=== PATIENT | female | born 1965 | race Caucasian/White ===

== ENCOUNTER 2019-02-25 05:55 | Observation (INO) | payer OTHER ==
[2019-02-25 07:27] LABS: ABSOLUTE BASOPHILS # (AUTO) 0.1 10^3/uL (0.0-0.2); ABSOLUTE EOSINOPHILS # (AUTO) 0.2 10^3/uL (0.0-0.6); ABSOLUTE LYMPHOCYTES (AUTO) 1.5 10^3/uL (0.5-4.7); ABSOLUTE MONOCYTES (AUTO) 0.6 10^3/uL (0.1-1.4); ABSOLUTE NEUT (AUTO) 8.7 10^3/uL (1.7-8.2); BASOPHILS % (AUTO) 0.7 % (0-2); EOSINOPHILS % (AUTO) 1.9 % (0-6); HEMATOCRIT 44.4 % (36.0-47.0); HEMOGLOBIN 14.8 g/dL (12.0-15.5); LYMPHOCYTES % (AUTO) 13.4 % (13-45); MEAN CORPUSCULAR HEMOGLOBIN 26.4 pg (27.0-33.4); MEAN CORPUSCULAR HGB CONC 33.3 g/dL (32.0-36.0); MEAN CORPUSCULAR VOLUME 79 fl (80-97); MONOCYTES % (AUTO) 5.8 % (3-13); PLATELET COUNT 382 10^3/uL (150-450); RED CELL DISTRIBUTION WIDTH 13.6 % (11.5-14.0); SEGMENTED NEUTROPHILS % (AUTO) 78.2 % (42-78); TOTAL CELLS COUNTED % (AUTO) 100 %; WHITE BLOOD COUNT 11.1 10^3/uL (4.0-10.5)
[2019-02-25 07:31] LABS: APPEARANCE,URINE SLIGHTLY-CLOUDY; BILIRUBIN,URINE NEGATIVE (NEGATIVE); GLUCOSE, URINE NEGATIVE (NEGATIVE); KETONES,URINE NEGATIVE (NEGATIVE); LEUKOCYTE ESTERASE,URINE MODERATE (NEGATIVE); NITRITE,URINE NEGATIVE (NEGATIVE); PROTEIN,URINE 30 mg/dL (NEGATIVE); URINE SPECIFIC GRAVITY 1.027; UROBILINOGEN,URINE NEGATIVE mg/dL (<2.0)
[2019-02-25 07:36] LABS: COLOR,URINE YELLOW
[2019-02-25 07:44] LABS: ALANINE AMINOTRANSFERASE 38 U/L (9-52); ALBUMIN 4.9 g/dL (3.5-5.0); ALKALINE PHOSPHATASE 110 U/L (38-126); ANION GAP 13 (5-19); ASPARTATE AMINO TRANSFERASE 31 U/L (14-36); BILIRUBIN,DIRECT 0.2 mg/dL (0.0-0.4); BILIRUBIN,TOTAL 0.5 mg/dL (0.2-1.3); BLOOD UREA NITROGEN 11 mg/dL (7-20); CALCIUM 10.3 mg/dL (8.4-10.2); CARBON DIOXIDE 30 mmol/L (22-30); CHLORIDE 100 mmol/L (98-107); GLUCOSE 124 mg/dL (75-110); LIPASE 81.9 U/L (23-300); POTASSIUM 4.1 mmol/L (3.6-5.0); SODIUM 142.8 mmol/L (137-145); TOTAL PROTEIN 8.1 g/dL (6.3-8.2)
--- NOTE | 2019-02-25 07:58 | ER Document Report ---
ED General - General Chief Complaint: Abdominal Pain >50 Stated Complaint: ABDOMINAL PAIN Time Seen by Provider: 02/25/19 07:36 Primary Care Provider: OSMAR DUKES MD [ACTIVE STAFF] - Follow up as needed Notes: [id number] to the emergency department chief complaint of abdominal pain. Patient states that pain began yesterday. Has gotten worse. Located diffusely in the abdomen. Mostly in the right upper quadrant and right lower quadrant area. Some nausea. No diarrhea. Patient states that she has had a Meckel's diverticulum when she was about 12 years old and subsequent bowel obstruction. Other than that she has had no other surgeries. TRAVEL OUTSIDE OF THE [place] IN LAST 30 DAYS: No - HPI Onset: Yesterday Onset/Duration: Gradual, Constant Quality of pain: Achy Severity: Moderate Pain Level: 3 Associated symptoms: Nausea - Related Data Allergies/Adverse Reactions: pseudoephedrine HCl [From Actifed] Allergy (Mild, Verified 05/11/11 09:40) unknown triprolidine HCl [From Actifed] Allergy (Mild, Verified 05/11/11 09:40) unknown Past Medical History - General Information source: Patient - Social History Smoking Status: Never Smoker Frequency of alcohol use: None Drug Abuse: None Lives with: Spouse/Significant other Family History: Reviewed & Not Pertinent - Medical History Medical History: Negative - Past Medical History Cardiac Medical History: Denies: Hx Heart Attack, Hx Hypertension Pulmonary Medical History: Denies: Hx Asthma Neurological Medical History: Denies: Hx Cerebrovascular Accident, Hx Seizures GI Medical History: Denies: Hx Hepatitis, Hx Hiatal Hernia, Hx Ulcer Musculoskeletal Medical History: Infectious Medical History: Denies: Hx Hepatitis Past Surgical History: Denies: Hx Hysterectomy, Hx Mastectomy, Hx Open Heart Surgery, Hx Pacemaker Review of Systems - Review of Systems Notes: Constitutional: denies: Chills, Diaphoresis, Fever, Malaise, Weakness EENT: denies: Eye discharge, Blurred vision, Tearing, Double vision, Nose congestion, Nose discharge, Throat swelling, Mouth pain Cardiovascular: denies: Palpitations, Heart racing, Orthopnea, Dyspnea, Chest pain Respiratory: denies: Cough, Hurts to breathe, Wheezing, Shortness of breath Gastrointestinal: Complaining of abdominal pain and nausea. No diarrhea. Genitourinary: denies: Burning, Dysuria, Discharge, Frequency, Flank pain, Hematuria Musculoskeletal: denies: Joint pain, Joint swelling, Muscle pain, Muscle stiffness, back pain Hematologic/Lymphatic: denies: Anemia, Easy bleeding, Easy bruising, Blood clots Neurological/Psychological: denies: Confusion, Dementia, Depression, Loss of consciousness Skin: No lesions, no masses, no skin breakdown, no abscesses Physical Exam - Vital signs Vitals: Temp Pulse Resp BP Pulse Ox 98.0 F 86 16 192/86 H 99 02/25/19 05:59 02/25/19 05:59 02/25/19 05:59 02/25/19 05:59 02/25/19 05:59 Interpretation: Normal - General General appearance: Appears well, Alert - HEENT Head: Normocephalic, Atraumatic Eyes: Normal Pupils: PERRL - Respiratory Respiratory status: No respiratory distress Chest status: Nontender Breath sounds: Normal Chest palpation: Normal - Cardiovascular Rhythm: Regular Heart sounds: Normal auscultation Murmur: No - Abdominal Inspection: Normal Distension: No distension Bowel sounds: Hypoactive Tenderness: Tender - Moderate tenderness diffusely. No: Guarding, Rebound Organomegaly: No organomegaly - Back Back: Normal, Nontender - Extremities General upper extremity: Normal inspection, Nontender, Normal color, Normal ROM, Normal temperature General lower extremity: Normal inspection, Nontender, Normal color, Normal ROM, Normal temperature, Normal weight bearing. No: Bridger's sign - Neurological Neuro grossly intact: Yes Cognition: Normal Orientation: AAOx4 Dumas Coma Scale Eye Opening: Spontaneous Anne Coma Scale Verbal: Oriented Dum[place] Coma Scale Motor: Obeys Commands Dumas Coma Scale Total: 15 Speech: Normal Motor strength normal: LUE, RUE, LLE, RLE Sensory: Normal - Psychological Associated symptoms: Normal affect, Normal mood - Skin Skin Temperature: Warm Skin Moisture: Dry Skin Color: Normal Course - Re-evaluation Re-evalutation: 02/25/19 12:16 Laboratory 02/25/19 02/25/19 02/25/19 07:06 07:06 07:06 WBC 11.1 H RBC 5.60 H Hgb 14.8 Hct 44.4 MCV 79 L MCH 26.4 L MCHC 33.3 RDW 13.6 Plt Count 382 Seg Neutrophils % 78.2 H Lymphocytes % 13.4 Monocytes % 5.8 Eosinophils % 1.9 Basophils % 0.7 Absolute Neutrophils 8.7 H Absolute Lymphocytes 1.5 Absolute Monocytes 0.6 Absolute Eosinophils 0.2 Absolute Basophils 0.1 Sodium 142.8 Potassium 4.1 Chloride 100 Carbon Dioxide 30 Anion Gap 13 BUN 11 Creatinine 0.70 Est GFR ( Amer) > 60 Est GFR (Non-Af Amer) > 60 Glucose 124 H Calcium 10.3 H Total Bilirubin 0.5 Direct Bilirubin 0.2 Neonat Total Bilirubin Not Reportable Neonat Direct Bilirubin Not Reportable Neonat Indirect Bili Not Reportable AST 31 ALT 38 Alkaline Phosphatase 110 Troponin I Total Protein 8.1 Albumin 4.9 Lipase 81.9 Urine Color YELLOW Urine Appearance SLIGHTLY-CLOUDY Urine pH 5.0 Ur Specific [place] 1.027 Urine Protein 30 H Urine Glucose (UA) NEGATIVE Urine Ketones NEGATIVE Urine Blood NEGATIVE Urine Nitrite NEGATIVE Urine Bilirubin NEGATIVE Urine Urobilinogen NEGATIVE Ur Leukocyte Esterase MODERATE H Urine WBC (Auto) 12 Urine RBC (Auto) 4 U Hyaline Cast (Auto) 1 Squamous Epi Cells Auto 1 Urine Mucus (Auto) FEW Urine Ascorbic Acid NEGATIVE 02/25/19 07:06 WBC RBC Hgb Hct MCV MCH MCHC RDW Plt Count Seg Neutrophils % Lymphocytes % Monocytes % Eosinophils % Basophils % Absolute Neutrophils Absolute Lymphocytes Absolute Monocytes Absolute Eosinophils Absolute Basophils Sodium Potassium Chloride Carbon Dioxide Anion Gap BUN Creatinine Est GFR ( Amer) Est GFR (Non-Af Amer) Glucose Calcium Total Bilirubin Direct Bilirubin Neonat Total Bilirubin Neonat Direct Bilirubin Neonat Indirect Bili AST ALT Alkaline Phosphatase Troponin I < 0.012 Total Protein Albumin Lipase Urine Color Urine Appearance Urine pH Ur Specific [place] Urine Protein Urine Glucose (UA) Urine Ketones Urine Blood Urine Nitrite Urine Bilirubin Urine Urobilinogen Ur Leukocyte Esterase Urine WBC (Auto) Urine RBC (Auto) U Hyaline Cast (Auto) Squamous Epi Cells Auto Urine Mucus (Auto) Urine Ascorbic Acid Abdomen/Pelvis CT 02/25/19 00:00 IMPRESSION: 1. Mild hepatic steatosis. 2. There are some mildly distended loops of small bowel, possible partial small bowel obstruction. Abdomen Ultrasound 02/25/19 07:48 IMPRESSION: LIMITED STUDY. POSSIBLE SMALL MUCOSAL POLYP IN THE GALLBLADDER. NO GALLSTONES. FATTY INFILTRATION OF THE LIVER. HEPATIC CYSTS. NO OTHER SIGNIFICANT FINDING IN THE VISUALIZED ABDOMEN. Patient has possible early small bowel obstruction. Given her history of previous bowel obstruction this is possible. At this time will make n.p.o. IV fluids. Surgical consult. Anticipate admit. - Vital Signs Vital signs: Temp Pulse Resp BP Pulse Ox 98.0 F 86 16 163/91 H 97 02/25/19 05:59 02/25/19 05:59 02/25/19 05:59 02/25/19 08:28 02/25/19 09:00 - Laboratory Result Diagrams: 02/25/19 07:06 02/25/19 07:06 Laboratory results interpreted by me: 02/25/19 02/25/19 02/25/19 07:06 07:06 07:06 WBC 11.1 H RBC 5.60 H MCV 79 L MCH 26.4 L Seg Neutrophils % 78.2 H Absolute Neutrophils 8.7 H Glucose 124 H Calcium 10.3 H Urine Protein 30 H Ur Leukocyte Esterase MODERATE H Discharge - Discharge Clinical Impression: Partial obstruction of small intestine Condition: Good Disposition: ADMITTED INPATIENT Admitting Provider: Surgicalist - [facility] Unit Admitted: Surgical Floor Referrals: OSMAR DUKES MD [ACTIVE STAFF] - Follow up as needed
[2019-02-25] MEDS ORDERED: NORMAL SALINE 1000 ML 1,000 ML IV ONE (07:59)
[2019-02-25] MEDS ORDERED: ONDANSETRON HCL INJ/PF 4 MG/2 ML SDV IV ONE (08:00)
[2019-02-25] MEDS ORDERED: FAMOTIDINE INJ/PF 20 MG/2 ML SDV IV ONE (08:00)
[2019-02-25] MEDS ORDERED: FENTANYL CITRATE INJ/PF 100 MCG/2 ML AMPUL IV PRN (09:40)
--- NOTE | 2019-02-25 10:39 | RADIOLOGY REPORT (SQ) ---
EXAM DESCRIPTION: U/S ABDOMEN LIMITED W/O DOP COMPLETED DATE/TIME: 02/25/2019 10:29 am REASON FOR STUDY: ruq and epigastric pain COMPARISON: None. TECHNIQUE: Dynamic and static grayscale images acquired of the abdomen and recorded on PACS. Additio nal selected color Doppler and spectral images recorded. Note: Exam does not meet criteria for a complete doppler/duplex scan LIMITATIONS: Study limited due to acoustical interference from fat or from air in the bowel. FINDINGS: PANCREAS: Unable to visualize. LIVER: Echotexture is coarse with increased echogenicity consistent with fatty infiltration. Cystic lesions in the left lobe measuring 2.0 cm and 2.2 cm. LIVER VASCULATURE: Normal directional flow of the main portal vein and hepatic veins. GALLBLADDER: No stones. Possible small mucosal polyp. Normal wall thickness. No pericholecystic flu id. ULTRASOUND-DETECTED DEVINE'S SIGN: Negative. INTRAHEPATIC DUCTS AND COMMON DUCT: CBD and intrahepatic ducts normal caliber. No filling defects. INFERIOR VENA CAVA: Normal flow. AORTA: No aneurysm. RIGHT KIDNEY: Normal size. Normal echogenicity. No solid or suspicious masses. No hydronephrosis. No calcifications. PERITONEAL AND PLEURAL SPACES: No ascites or effusions. OTHER: No other significant finding. IMPRESSION: LIMITED STUDY. POSSIBLE SMALL MUCOSAL POLYP IN THE GALLBLADDER. NO GALLSTONES. FATTY INFILTRATION OF THE LIVER. HEPATIC CYSTS. NO OTHER SIGNIFICANT FINDING IN THE VISUALIZED ABDOMEN. TECHNICAL DOCUMENTATION: JOB ID: [id number] [employer]- All Rights Reserved Reading location - IP/workstation name: [email or web address]
--- NOTE | 2019-02-25 11:26 | RADIOLOGY REPORT (SQ) ---
EXAM DESCRIPTION: CT ABD/PELVIS WITH IV ORAL COMPLETED DATE/TIME: 02/25/2019 11:09 am REASON FOR STUDY: rlq pain COMPARISON: None. TECHNIQUE: CT scan of the abdomen and pelvis performed using helical scanning technique with dynamic intravenous contrast injection. Oral contrast. Images reviewed with lung, soft tissue, and bone win dows. Reconstructed coronal and sagittal MPR images reviewed. Delayed images for evaluation of the ur inary system also acquired. All images stored on PACS. All CT scanners at this facility use dose modulation, iterative reconstruction, and/or weight based d osing when appropriate to reduce radiation dose to as low as reasonably achievable (ALARA). [facility]: Dose Right [facility]: CareDose [facility]: Dose Right [facility]: Teradose 4D [facility]: ReDigi CONTRAST TYPE AND DOSE: contrast/concentration: Isovue 350.00 mg/ml; Total Contrast Delivered: 100.0 ml; Total Saline Delivered: 46.6 ml RENAL FUNCTION: BUN 11 creatinine 0.7 RADIATION DOSE: CT Rad equipment meets quality standard of care and radiation dose reduction techniq ues were employed. CTDIvol: 21.0 - 21.1 mGy. DLP: 2591 mGy-cm.. LIMITATIONS: None. FINDINGS: LOWER CHEST: No significant findings. No nodules or infiltrates. LIVER: Mildly hyperattenuating. There are 2 small contiguous cysts in the left lobe. SPLEEN: Normal size. No focal lesions. PANCREAS: No masses. No significant calcifications. No adjacent inflammation or peripancreatic fluid collections. Pancreatic duct not dilated. GALLBLADDER: There appear to be some tiny gallstones. ADRENAL GLANDS: No significant masses or asymmetry. RIGHT KIDNEY AND URETER: No solid masses. No significant calcifications. No hydronephrosis or hyd roureter. LEFT KIDNEY AND URETER: No solid masses. No significant calcifications. No hydronephrosis or hydr oureter. AORTA AND VESSELS: No aneurysm. No dissection. Renal arteries, SMA, celiac without stenosis. RETROPERITONEUM: No retroperitoneal adenopathy, hemorrhage or masses. BOWEL AND PERITONEAL CAVITY: There are some mildly distended loops of small bowel. There appears to be a transition point to the left of the midline. APPENDIX: Not identified. PELVIS: No mass. No free fluid. Normal bladder. ABDOMINAL WALL: No masses. No hernias. BONES: No significant or acute findings. OTHER: No other significant finding. IMPRESSION: 1. Mild hepatic steatosis. 2. There are some mildly distended loops of small bowel, possible partial small bowel obstruction. TECHNICAL DOCUMENTATION: JOB ID: [id number] Quality ID # [id number]: Final reports with documentation of one or more dose reduction techniques (e.g., Au tomated exposure control, adjustment of the mA and/or kV according to patient size, use of iterative reconstruction technique) 2010 [employer]- All Rights Reserved Reading location - IP/workstation name: [email or web address]
[2019-02-25] MEDS ORDERED: POTASSI CL 20 MEQ/D5-1/2NS 1L 1,000 ML IV ONE (12:17)
[2019-02-25] MEDS ORDERED: MAGNESIUM CITRATE 296 ML BOTTLE PO ONE (13:20)
[2019-02-25] MEDS ORDERED: ONDANSETRON HCL INJ/PF 4 MG/2 ML SDV IV PRN (13:20)
[2019-02-25] MEDS ORDERED: ACETAMINOPHEN 325 MG TABLET PO PRN (13:20)
--- NOTE | 2019-02-25 13:20 | PDOC H&P ---
History of Present Illness Admission Date/PCP: RAH PORTER MD Patient complains of: Abdominal pain History of Present Illness: RADU BARBER is a 53 year old female, obese, with HTN, c/o diffuse abdominal pain since last evening, emesis this morning, flatus today. She has a hx of smll bowel obstruction during [employer] secondary to a Meckel di verticulum induced volvulus. A CT scan A/p done today shows a moderate partial mechanical small bowel obstruction. Past Medical History Cardiac Medical History: Denies: Myocardial Infarction, Hypertension Pulmonary Medical History: Denies: Asthma Neurological Medical History: Denies: Seizures GI Medical History: Denies: Hepatitis, Hiatal Hernia Musculoskeltal Medical History: Psychiatric Medical History: Reports: Depression Hematology: Denies: Anemia, Sickle Cell Disease Past Surgical History Past Surgical History: Denies: Amputation, Hysterectomy, Mastectomy, Pacemaker Social History Lives with: Spouse/Significant other Smoking Status: Never Smoker Hx Recreational Drug Use: No Family History Family History: Reviewed & Not Pertinent Parental Family History Reviewed: Yes - mother with bladder and colon cancer Children Family History Reviewed: No Sibling(s) Family History Reviewed.: No Medication/Allergy Allergies/Adverse Reactions: pseudoephedrine HCl [From Actifed] Allergy (Mild, Verified 05/11/11 09:40) unknown triprolidine HCl [From Actifed] Allergy (Mild, Verified 05/11/11 09:40) unknown Physical Exam Vital Signs: Temp Pulse Resp BP Pulse Ox 98.0 F 86 16 163/91 H 97 02/25/19 05:59 02/25/19 05:59 02/25/19 05:59 02/25/19 08:28 02/25/19 09:00 Intake & Output 02/24/19 02/25/19 02/26/19 06:59 06:59 06:59 Intake Total 1000 Balance 1000 Weight 124.8 kg General appearance: PRESENT: no acute distress, obese, well-developed Head exam: PRESENT: normocephalic Eye exam: PRESENT: EOMI, PERRLA Mouth exam: PRESENT: dry mucosa, neck supple Neck exam: PRESENT: full ROM Respiratory exam: PRESENT: clear to auscultation shavonne Cardiovascular exam: PRESENT: RRR GI/Abdominal exam: PRESENT: hyperactive bowel sounds, soft, tenderness - slightly and diffusely, no peritonela signs, Rectal exam: PRESENT: deferred Extremities exam: PRESENT: full ROM Musculoskeletal exam: PRESENT: full ROM Neurological exam: PRESENT: alert, awake, oriented to time Psychiatric exam: PRESENT: appropriate affect Skin exam: PRESENT: warm Results Laboratory Results: 02/25/19 07:06 02/25/19 07:06 02/25/19 02/25/19 02/25/19 07:06 07:06 07:06 WBC 11.1 H RBC 5.60 H Hgb 14.8 Hct 44.4 MCV 79 L MCH 26.4 L MCHC 33.3 RDW 13.6 Plt Count 382 Seg Neutrophils % 78.2 H Lymphocytes % 13.4 Monocytes % 5.8 Eosinophils % 1.9 Basophils % 0.7 Absolute Neutrophils 8.7 H Absolute Lymphocytes 1.5 Absolute Monocytes 0.6 Absolute Eosinophils 0.2 Absolute Basophils 0.1 Sodium 142.8 Potassium 4.1 Chloride 100 Carbon Dioxide 30 Anion Gap 13 BUN 11 Creatinine 0.70 Est GFR ( Amer) > 60 Est GFR (Non-Af Amer) > 60 Glucose 124 H Calcium 10.3 H Total Bilirubin 0.5 AST 31 ALT 38 Alkaline Phosphatase 110 Total Protein 8.1 Albumin 4.9 Lipase 81.9 Urine Color YELLOW Urine Appearance SLIGHTLY-CLOUDY Urine pH 5.0 Ur Specific [place] 1.027 Urine Protein 30 H Urine Glucose (UA) NEGATIVE Urine Ketones NEGATIVE Urine Blood NEGATIVE Urine Nitrite NEGATIVE Ur Leukocyte Esterase MODERATE H Urine WBC (Auto) 12 Urine RBC (Auto) 4 02/25/19 07:06 Troponin I < 0.012 Impressions: Abdomen/Pelvis CT 02/25/19 00:00 IMPRESSION: 1. Mild hepatic steatosis. 2. There are some mildly distended loops of small bowel, possible partial small bowel obstruction. Abdomen Ultrasound 02/25/19 07:48 IMPRESSION: LIMITED STUDY. POSSIBLE SMALL MUCOSAL POLYP IN THE GALLBLADDER. NO GALLSTONES. FATTY INFILTRATION OF THE LIVER. HEPATIC CYSTS. NO OTHER SIGNIFICANT FINDING IN THE VISUALIZED ABDOMEN. Assessment & Plan - Diagnosis (1) Partial obstruction of small intestine Is this a current diagnosis for this admission?: Yes - Plan Summary Plan Summary: A/ Abdominal pain since yesterday Hx of small bowel surgery at young age for Meckel diverticulum induced obstruction Flatus today with emesis x 1 CT scan A/P shows a partial mechanical small bowel obstruction (gas and stools are present in the rectum with a few loops of small bowel only mildly dilated) Slight leukocytosis (11) P/ Admit under Surgical service Conservative management only at this time Clear liquid diet IVF maintenance Magnesium citrate 1 bottle plus 5 large glasses of water Follow up abdominal obstructive series in AM Repeat blood work in AM
--- NOTE | 2019-02-25 13:49 | EKG REPORT ---
SEVERITY:- BORDERLINE ECG - SINUS RHYTHM 87/MIN. : Confirmed by: Vinod Dang MD 25-Feb-2019 13:48:34
[2019-02-25] MEDS: NORMAL SALINE 1000 ML 1,000 ML IV PRN ×2 (13:58→16:49)
[2019-02-25] MEDS ORDERED: HYDROCHLOROTHIAZIDE 12.5 MG TABLET PO ONE (14:51)
[2019-02-25] MEDS ORDERED: LOSARTAN POTASSIUM 50 MG TABLET PO ONE (14:52)
[2019-02-25] MEDS: FAMOTIDINE INJ/PF 20 MG/2 ML SDV IV SCH (22:17)
[2019-02-26 08:07] LABS: HEMATOCRIT 39.6 % (36.0-47.0); HEMOGLOBIN 13.2 g/dL (12.0-15.5); MEAN CORPUSCULAR HEMOGLOBIN 26.5 pg (27.0-33.4); MEAN CORPUSCULAR HGB CONC 33.3 g/dL (32.0-36.0); MEAN CORPUSCULAR VOLUME 80 fl (80-97); PLATELET COUNT 355 10^3/uL (150-450); RED BLOOD COUNT 4.97 10^6/uL (3.72-5.28); RED CELL DISTRIBUTION WIDTH 14.2 % (11.5-14.0); WHITE BLOOD COUNT 9.9 10^3/uL (4.0-10.5)
[2019-02-26 08:28] LABS: ANION GAP 9 (5-19); BLOOD UREA NITROGEN 8 mg/dL (7-20); CALCIUM 9.4 mg/dL (8.4-10.2); CARBON DIOXIDE 30 mmol/L (22-30); CHLORIDE 102 mmol/L (98-107); GLUCOSE 106 mg/dL (75-110); POTASSIUM 4.1 mmol/L (3.6-5.0); SODIUM 141.1 mmol/L (137-145)
--- NOTE | 2019-02-26 09:06 | RADIOLOGY REPORT (SQ) ---
EXAM DESCRIPTION: KUB/ABDOMEN (SINGLE VIEW) COMPLETED DATE/TIME: 02/26/2019 8:55 am REASON FOR STUDY: SBO COMPARISON: 02/25/2019 NUMBER OF VIEWS: One view. TECHNIQUE: Supine radiographic image of the abdomen acquired. LIMITATIONS: None. FINDINGS: BOWEL GAS PATTERN: Decreased gaseous distention of small bowel loops throughout the mid ab domen. No definitive pathologically dilated loops of gas containing bowel. Gas throughout the colon . CALCIFICATIONS: No suspicious calcifications. SOFT TISSUES: No gross mass or suggestion of organomegaly. HARDWARE: None in the abdomen. BONES: No acute fracture. No worrisome bone lesions. OTHER: No other significant finding. IMPRESSION: Decreased gaseous distention of small bowel loops throughout the abdomen without definit valdo pathologically dilated loops of bowel. Gas throughout the colon. TECHNICAL DOCUMENTATION: JOB ID: [id number] [employer]- All Rights Reserved Reading location - IP/workstation name: [email or web address]
[2019-02-26] MEDS: FAMOTIDINE INJ/PF 20 MG/2 ML SDV IV SCH (09:31)
[2019-02-26 12:29] VITALS: BP 151/71
--- NOTE | 2019-02-26 16:24 | PDOC DISCHARGE SUMMARY ---
General - Admit/Disc Date/PCP Admission Date/Primary Care Provider: 02/25/19 13:10 RAH PORTER MD Discharge Date: 02/26/19 - Discharge Diagnosis (1) Partial obstruction of small intestine Is this a current diagnosis for this admission?: Yes - Additional Information Resuscitation Status: Full Code Discharge Diet: As Tolerated Discharge Activity: Activity As Tolerated Home Medications: Fluoxetine HCl [Prozac 20 mg Capsule] 20 mg PO DAILY 02/25/19 Losartan/Hydrochlorothiazide [Hyzaar 100-12.5 Tablet] 1 each PO DAILY 02/25/19 Montelukast Sodium [Singulair 10 mg Tablet] 10 mg PO DAILY 02/25/19 Multivitamin [Tab-A-Parvez (Multiple Vitamin) Tablet] 1 tab PO DAILY 02/25/19 History of Present Illness History of Present Illness: RADU BARBER is a 53 year old female admitted with nausea and abdominal pain. On CT scan she was found to have a partial small bowel obstruction. Patient does have a history of remote abdominal surgery. She was admitted to the floor for observation. Hospital Course Hospital Course: The patient was admitted to the floor for observation, in stable condition. The patient began having bowel movements and immediately began feeling better. The patient was started on a regular diet, and tolerated this well. By 02/26/2019 the patient was ambulating, tolerating a diet, was not requiring pain medications, was afebrile, and was requesting discharge. At this time is felt that she is medically fit for discharge, as she has reached maximal hospital benefit. Physical Exam Vital Signs: Temp Pulse Resp BP Pulse Ox 97.2 F 67 12 151/71 H 96 02/26/19 12:00 02/26/19 12:00 02/26/19 12:00 02/26/19 12:00 02/26/19 12:00 Intake & Output 02/25/19 02/26/19 02/27/19 06:59 06:59 06:59 Intake Total 2556 Output Total 700 Balance 1856 Weight 124.8 kg 124.9 kg Results Laboratory Results: 02/26/19 07:35 02/26/19 07:35 02/26/19 02/26/19 07:35 07:35 WBC 9.9 RBC 4.97 Hgb 13.2 Hct 39.6 MCV 80 MCH 26.5 L MCHC 33.3 RDW 14.2 H Plt Count 355 Sodium 141.1 Potassium 4.1 Chloride 102 Carbon Dioxide 30 Anion Gap 9 BUN 8 Creatinine 0.61 Est GFR ( Amer) > 60 Est GFR (Non-Af Amer) > 60 Glucose 106 Calcium 9.4 02/25/19 07:06 Clean Catch Midstream Urine Culture - Final Group B Beta Streptococcus Mixed Urogenital Nancy 02/25/19 07:06 Troponin I < 0.012 Impressions: Abdomen/Pelvis CT 02/25/19 00:00 IMPRESSION: 1. Mild hepatic steatosis. 2. There are some mildly distended loops of small bowel, possible partial small bowel obstruction. Abdomen Ultrasound 02/25/19 07:48 IMPRESSION: LIMITED STUDY. POSSIBLE SMALL MUCOSAL POLYP IN THE GALLBLADDER. NO GALLSTONES. FATTY INFILTRATION OF THE LIVER. HEPATIC CYSTS. NO OTHER SIGNIFICANT FINDING IN THE VISUALIZED ABDOMEN. KUB X-Ray 02/26/19 08:26 IMPRESSION: Decreased gaseous distention of small bowel loops throughout the abdomen without definitive pathologically dilated loops of bowel. Gas throughout the colon. Qualifiers - * PATIENT BEING DISCHARGED WITH ANY OF THE FOLLOWING DIAGNOSIS: No Acute Heart Failure Is this a Heart Failure Patient?: No Plan Discharge Plan: Discharge home. Diet as tolerated. Activity: As tolerated. Follow-up with [place] [facility] as needed. Time Spent: Less than 30 Minutes
== END 2019-02-26 17:07 | disposition home or self-care (01) ==
LOC: ER 05:55 → INTOOBSV 13:10 → EH 13:10 → 4S 16:37
PROVIDERS: ADMIT Surgery; ATTEND Surgery
DX: K56.690 Other partial intestinal obstruction (principal); I10 Essential (primary) hypertension; E66.9 Obesity, unspecified; D72.829 Elevated white blood cell count, unspecified; K76.0 Fatty (change of) liver, not elsewhere classified; Z98.890 Other specified postprocedural states; Z79.899 Other long term (current) drug therapy; Z80.52 Family history of malignant neoplasm of bladder; Z80.0 Family history of malignant neoplasm of digestive organs
CPT/HCPCS: 93005; 99284; 96361; 96374; 96375; 36415 ×2; 87086; 83690; 85025; 85027; 87088; 80048; 80053; 81001; 84484; 74018; 76705; 74177; 93010; G0378 ×3; J3490; J2405; J7030; S0028 ×2

== ENCOUNTER 2019-05-07 10:54 | Day surgery (SDC) | payer OTHER ==
[2019-05-02 10:23] LABS: HEMATOCRIT 39.3 % (36.0-47.0); HEMOGLOBIN 13.1 g/dL (12.0-15.5); MEAN CORPUSCULAR HEMOGLOBIN 26.4 pg (27.0-33.4); MEAN CORPUSCULAR HGB CONC 33.4 g/dL (32.0-36.0); MEAN CORPUSCULAR VOLUME 79 fl (80-97); PLATELET COUNT 325 10^3/uL (150-450); RED BLOOD COUNT 4.96 10^6/uL (3.72-5.28); RED CELL DISTRIBUTION WIDTH 14.3 % (11.5-14.0); WHITE BLOOD COUNT 8.6 10^3/uL (4.0-10.5)
[~2019-05-07 10:54] MED LIST: ACETAMINOPHEN 325 MG TABLET PO PRN; LACTATED RINGERS 1000 ML IV PRN; LIDOCAINE 0.5% INJ-PF (5 MG/ML) 50 ML SDV SUBCUT PRN
[2019-05-07] MEDS ORDERED: PROPOFOL INJ 200 MG/20 ML VIAL IV ONE (12:32)
[2019-05-07] MEDS ORDERED: MIDAZOLAM 2 MG/2 ML INJ ONE (12:32)
[2019-05-07] MEDS ORDERED: ONDANSETRON HCL INJ/PF 4 MG/2 ML SDV IV PRN (13:02)
--- NOTE | 2019-05-07 14:09 | Operative Report ---
Operative Report DATE OF SURGERY: 05/07/19 PREOPERATIVE DIAGNOSIS: Need for screening colonoscopy to rule out colorectal c arcinoma POSTOPERATIVE DIAGNOSIS: Same with. 1. 1-2 colonic diverticula. 2. Left colon polyp, subtle and small. 3. Low rectal polyp OPERATION: 1. Typical no subsequent. 2. Cold forceps polypectomy of the left colon polyp. 3. Cold forceps polypectomy of rectal polyp SURGEON: JASON MAYER ANESTHESIA: LMAC TISSUE REMOVED OR ALTERED: Polyps COMPLICATIONS: None ESTIMATED BLOOD LOSS: Skin INTRAOPERATIVE FINDINGS: See below PROCEDURE: Obtaining informed consent the patient was taken from the preoperative holding area to the main endoscopy suite where monitoring devices were attached to the patient. Plan and surgical timeout were conducted The patient was placed in the left lateral decubitus position with knees to chest. A perianal examination was performed. There was no visible or palpable anorectal pathology. Sphincter tone was felt to be normal. The flexible adult colonoscope was advanced through the anal rectal canal, all the way to the cecum. Visualization of the cecum was achieved and the ileocecal valve, the appendiceal orifice and transillumination of the anterior abdominal wall. This was an excellent study on the well-prepped bowel. In the left colon approximately 60 cm from the anal verge was a small subtle sessile polyp less than 3 mm diameter which was removed using 2 bites of the cold forceps device. Specimen was sent as left colon polyp. Bleeding minimal. The colonoscope was withdrawn slowly and methodically checked and the mucosa carefully. There was no evidence of tumor, stricture, bleeding; There was 1 or 2 diverticuloses. The scope was slowly withdrawn through the anal rectal canal. Complete visualization of the rectum was achieved with photodocumentation. Scope was retroflexed in the anorectal canal. A small pedunculated polyp photographed. Bleeding was minimal. The scope was withdrawn to the patient's anus. The patient tolerated the procedure well and was taken to the recovery area in stable condition. Per surveillance guidelines, patient be appropriate candidate for follow-up colonoscopy in 3 to 5 years, pending final path report.
--- NOTE | 2019-05-07 14:18 | Discharge Summary ---
Discharge Summary (SDC) - Discharge Final Diagnosis: colon and rectal polyps Date of Surgery: 05/07/19 Discharge Date: 05/07/19 Treatment or Instructions: [facility] [place] [id number] POST ENDOSCOPY DISCHARGE INSTRUCTIONS 1. Diet: Start clear liquids that a regular diet as tolerated. 2. Resume all preoperative medications. All oral anticoagulants and aspirins can be resumed 24 hours after procedure. 3. If a polypectomy was performed some bleeding per rectum may occur. This should stop within 3 days. If not, please contact the office. 4. If you had a colonoscopy you may experience some bloating and delayed return of normal bowel function for several days, your regular bowel movement pattern should resume within a week. 5. Please contact [facility] at to make an appointment with Dr. Snyder for 1 to 3 weeks following procedure. 6. If you have any questions or concerns regarding your care,treatment plan or follow up, please contact our office. Referrals: RAH PORTER MD [Primary Care Provider] - Discharge Diet: Other (Comments) - start liquid diet then progress Report the Following to Your Physician Immediately: Nausea, Vomiting, Increase in Pain, Fever over 101 Degrees, Unusual Bleeding
[2019-05-07] MEDS ORDERED: METOPROLOL TARTRATE 25 MG TABLET ONE (14:33)
[2019-05-07 15:24] VITALS: BP 195/79
[2019-05-07] MEDS ORDERED: METOPROLOL TARTRATE 50 MG TABLET PO ONE (16:00)
== END 2019-05-07 15:23 | disposition home or self-care (01) ==
LOC: OROUT 10:54
PROVIDERS: ATTEND Surgery
DX: Z12.11 Encounter for screening for malignant neoplasm of colon (principal); K57.30 Diverticulosis of large intestine without perforation or abscess without bleeding; D12.8 Benign neoplasm of rectum; K63.5 Polyp of colon; I10 Essential (primary) hypertension; Z79.899 Other long term (current) drug therapy
CPT/HCPCS: 45380; 36415 ×2; 84132; 85027; 88305 ×2; 00811; J2250; J2704; 811